=== PATIENT | female | born 1980 | race Caucasian/White ===

== ENCOUNTER 2018-11-08 15:19 | Emergency (ER) | payer MEDICAID ==
[~2018-11-08] VITALS: Ht 157.5 cm; Wt 54.0 kg
[2018-11-08] MEDS ORDERED: ONDANSETRON HCL 4 MG/2 ML VIAL IVP ONE (16:45)
[2018-11-08] MEDS ORDERED: BARIUM SULFATE 0.1% SUSPENSION 450 ML BOTTLE PO ONE (16:45)
[2018-11-08] MEDS ORDERED: SODIUM CHLORIDE 0.9% 1,000 ML IV ONE (16:45)
[2018-11-08] MEDS ORDERED: KETOROLAC TROMETHAMINE 30 MG/ML VIAL IVP ONE (16:45)
[2018-11-08 17:45] LABS: BASOPHILS % (AUTO) 0.5 % (0.0-2.0); EOSINOPHILS % (AUTO) 0.9 % (1.0-6.0); HEMATOCRIT 45.6 % (36-46); LYMPHOCYTES # (AUTO) 1.8 K/uL (1.0-4.8); LYMPHOCYTES % (AUTO) 30.8 % (22.0-44.0); MEAN CORPUSCULAR HEMOGLOBIN 28.7 pg (26.0-34.0); MEAN CORPUSCULAR HGB CONC 32.8 G/dL (31.0-37.0); MEAN CORPUSCULAR VOLUME 88 fL (80-100); MONOCYTES # (AUTO) 0.5 K/uL (0.1-1.0); MONOCYTES % (AUTO) 7.9 % (2.0-9.0); NEUTROPHILS # (AUTO) 3.4 K/uL (1.8-7.7); NEUTROPHILS % (AUTO) 59.9 % (40.0-70.0); PLATELET COUNT (AUTO) 138 K/uL (150-450); RED BLOOD CELL COUNT(AUTO) 5.22 MIL/uL (4.00-5.20); RED CELL DISTRIBUTION WIDTH 13.7 % (11.5-14.5)
[2018-11-08 17:47] LABS: APPEARANCE,URINE CLEAR (CLEAR); BILIRUBIN,URINE NEGATIVE (NEGATIVE); GLUCOSE, URINE (UA) NEGATIVE (NEGATIVE); KETONES,URINE NEGATIVE (NEGATIVE); LEUKOCYTE ESTERASE ,URINE NEGATIVE (NEGATIVE); NITRATE,URINE NEGATIVE (NEGATIVE); OCCULT BLOOD,URINE NEGATIVE (NEGATIVE); PROTEIN,URINE NEGATIVE (NEGATIVE); UROBILINOGEN,URINE 0.2 mg/dL (<=1.0)
[2018-11-08] MEDS ORDERED: IOVERSOL 320 MG/ML 100 ML VIAL ONE (17:54)
[2018-11-08] MEDS ORDERED: SODIUM CHLORIDE 0.9% 100 ML ONE (17:54)
[2018-11-08 18:06] LABS: ANION GAP 10 mmol/L (8-16); CALCIUM, TOTAL 9.3 mg/dL (8.8-10.5); CARBON DIOXIDE 27 mmol/L (22-29); CHLORIDE 103 mmol/L (98-107); GLOMERULAR FILTR. RATE CALC > 60 mL/min (>60); GLUCOSE,RANDOM 71 mg/dL (70-110); POTASSIUM 3.7 mmol/L (3.5-5.1); SODIUM SERUM 140 mmol/L (136-145); UREA NITROGEN, BLOOD 13 mg/dL (7-18)
[2018-11-08 18:12] LABS: ALANINE AMINOTRANSFERASE 23 U/L (12-78); ALBUMIN 4.1 g/dL (3.4-5.0); ALKALINE PHOSPHATASE 59 U/L (46-116); ASPARTATE AMINOTRANSFERASE 20 U/L (15-37); BILIRUBIN,TOTAL 0.7 mg/dL (0.1-1.0); LIPASE 73 U/L (73-393); TOTAL PROTEIN, SERUM 8.2 g/dL (6.4-8.2)
[2018-11-08] MEDS ORDERED: MORPHINE SULFATE 2 MG/ML SYRINGE IVP ONE (20:15)
[2018-11-08 22:55] VITALS: BP 101/69
== END 2018-11-08 23:21 | disposition home or self-care (01) ==
LOC: EMS 15:22
DX: K29.70 Gastritis, unspecified, without bleeding (principal)
CPT/HCPCS: 36415; 74177; 80053; 81003; 83690; 85025; 96361; 96374; 96375; 99284; J1885; J2405; J7030; J7050; Q9967; J2270

== ENCOUNTER 2020-12-02 21:19 | Emergency (ER) | payer MEDICAID ==
[~2020-12-02] VITALS: Ht 165.1 cm; Wt 62.0 kg
[2020-12-02 23:23] LABS: APPEARANCE,URINE CLEAR (CLEAR); BILIRUBIN,URINE NEGATIVE (NEGATIVE); GLUCOSE, URINE (UA) NEGATIVE (NEGATIVE); KETONES,URINE NEGATIVE (NEGATIVE); LEUKOCYTE ESTERASE ,URINE NEGATIVE (NEGATIVE); NITRATE,URINE NEGATIVE (NEGATIVE); OCCULT BLOOD,URINE NEGATIVE (NEGATIVE); PROTEIN,URINE NEGATIVE (NEGATIVE); UROBILINOGEN,URINE 0.2 mg/dL (<=1.0)
[2020-12-02 23:34] LABS: BASOPHILS % (AUTO) 0.1 % (0.0-2.0); EOSINOPHILS % (AUTO) 0.1 % (1.0-6.0); HEMATOCRIT 40.3 % (36-46); HEMOGLOBIN 13.6 g/dL (12.0-16.0); LYMPHOCYTES # (AUTO) 0.6 K/uL (1.0-4.8); MEAN CORPUSCULAR HEMOGLOBIN 28.9 pg (26.0-34.0); MEAN CORPUSCULAR HGB CONC 33.7 G/dL (31.0-37.0); MEAN CORPUSCULAR VOLUME 86 fL (80-100); MONOCYTES # (AUTO) 0.4 K/uL (0.1-1.0); MONOCYTES % (AUTO) 4.9 % (2.0-9.0); NEUTROPHILS # (AUTO) 6.8 K/uL (1.8-7.7); RED CELL DISTRIBUTION WIDTH 13.6 % (11.5-14.5)
[2020-12-02 23:36] LABS: NEUTROPHILS % (AUTO) 86.9 % (40.0-70.0)
[2020-12-02 23:45] LABS: ANION GAP 11 mmol/L (8-16); CALCIUM, TOTAL 8.2 mg/dL (8.8-10.5); CARBON DIOXIDE 24 mmol/L (22-29); CHLORIDE 103 mmol/L (98-107); CREATININE 0.57 mg/dL (0.60-1.30); GLOMERULAR FILTR. RATE CALC > 60 mL/min (>60); GLUCOSE,RANDOM 96 mg/dL (70-110); POTASSIUM 3.4 mmol/L (3.5-5.1); SODIUM SERUM 138 mmol/L (136-145); UREA NITROGEN, BLOOD 10 mg/dL (7-18)
[2020-12-02] MEDS ORDERED: 0.9% SODIUM CHLORIDE 10 ML SYRINGE IVP PRN (23:45)
[2020-12-02] MEDS ORDERED: SODIUM CHLORIDE 0.9% 1,850 ML IV ONE (23:45)
[2020-12-02 23:55] LABS: ALANINE AMINOTRANSFERASE 21 U/L (12-78); ALBUMIN 3.5 g/dL (3.4-5.0); ALKALINE PHOSPHATASE 65 U/L (46-116); ASPARTATE AMINOTRANSFERASE 16 U/L (15-37); BILIRUBIN,TOTAL 0.9 mg/dL (0.1-1.0); HCG,QUANTITATIVE < 1 mIU/mL (0-6); LIPASE 55 U/L (73-393); TOTAL PROTEIN, SERUM 7.1 g/dL (6.4-8.2)
[2020-12-03] MEDS ORDERED: ACETAMINOPHEN 500 MG TABLET PO ONE
[2020-12-03] MEDS ORDERED: ONDANSETRON HCL 4 MG/2 ML VIAL IVP ONE
[2020-12-03] MEDS ORDERED: KETOROLAC TROMETHAMINE 30 MG/ML VIAL IVP ONE
[2020-12-03 00:07] LABS: PROTHROMBIN TIME 10.3 SEC (9.4-11.6)
[2020-12-03 00:11] LABS: PLATELET COUNT (AUTO) 117 K/uL (150-450)
[2020-12-03 00:12] LABS: COVID AG,FIA SOURCE NASOPHARYNGEAL
[2020-12-03] MEDS ORDERED: SODIUM CHLORIDE 0.9% 100 ML ONE (00:13)
[2020-12-03] MEDS ORDERED: IOHEXOL 350 MG/ML 100 ML VIAL ONE (00:13)
[2020-12-03] MEDS ORDERED: POTASSIUM CHLORIDE 20 MEQ ER TABLET PO ONE (01:00)
[2020-12-03 02:18] VITALS: BP 92/65
== END 2020-12-03 03:25 | disposition home or self-care (01) ==
LOC: EMS 21:22
DX: K52.9 Noninfective gastroenteritis and colitis, unspecified (principal); Z20.822 Contact with and (suspected) exposure to COVID-19
CPT/HCPCS: 36415; 71045; 74177; 80053; 81003; 83605; 83690; 84702; 85025; 85610; 87426; 93005; 96361; 96374; 96375; 99285; A9575; J1885; J2405; J7030; J7050

== ENCOUNTER 2024-10-07 06:21 | Emergency (ER) | payer SELFPAY ==
[~2024-10-07] VITALS: Ht 167.6 cm; Wt 63.6 kg
[2024-10-07 07:11] LABS: BASOPHILS % (AUTO) 0.2 % (0.0-2.0); EOSINOPHILS % (AUTO) 0.4 % (1.0-6.0); HEMATOCRIT 40.8 % (36-46); HEMOGLOBIN 13.9 g/dL (12.0-16.0); LYMPHOCYTES # (AUTO) 0.3 K/uL (1.0-4.8); LYMPHOCYTES % (AUTO) 3.4 % (22.0-44.0); MEAN CORPUSCULAR HEMOGLOBIN 29.6 pg (26.0-34.0); MEAN CORPUSCULAR HGB CONC 34.2 G/dL (31.0-37.0); MEAN CORPUSCULAR VOLUME 86 fL (80-100); MONOCYTES # (AUTO) 0.3 K/uL (0.1-1.0); NEUTROPHILS # (AUTO) 8.2 K/uL (1.8-7.7); PLATELET COUNT (AUTO) 137 K/uL (150-450); RED BLOOD CELL COUNT(AUTO) 4.71 MIL/uL (4.00-5.20); RED CELL DISTRIBUTION WIDTH 13.7 % (11.5-14.5); WHITE BLOOD COUNT (AUTO) 8.9 K/uL (4.5-11.0)
[2024-10-07 07:21] LABS: ANION GAP 4 mmol/L (8-16); CALCIUM, TOTAL 7.5 mg/dL (8.8-10.5); CARBON DIOXIDE 28 mmol/L (22-29); CHLORIDE 106 mmol/L (98-107); CREATININE 0.65 mg/dL (0.60-1.30); GLOMERULAR FILTR. RATE CALC > 60 mL/min (>60); GLUCOSE,RANDOM 119 mg/dL (70-110); POTASSIUM 4.1 mmol/L (3.5-5.1); SODIUM SERUM 138 mmol/L (136-145); UREA NITROGEN, BLOOD 16 mg/dL (7-18)
[2024-10-07 07:26] VITALS: TEMP 98.1
[2024-10-07 07:36] LABS: RBC MORPHOLOGY COMMENT NORMAL RBC MORPH
[2024-10-07] MEDS: CIPROFLOXACIN HCL 250 MG TABLET PO ONE (07:41)
[2024-10-07] MEDS: ONDANSETRON HCL 4 MG/2 ML VIAL IVP ONE (07:41)
[2024-10-07] MEDS: DIPHENOXYLATE/ATROP 2.5-0.025 MG TABLET PO ONE (07:41)
[2024-10-07] MEDS: SODIUM CHLORIDE 0.9% 500 ML IV ONE (07:42)
[2024-10-07] MEDS: DICYCLOMINE HCL 20 MG TABLET PO ONE (07:59)
[2024-10-07] MEDS: METOCLOPRAMIDE HCL 5 MG/ML 2 ML VIAL IVP ONE (08:48)
[2024-10-07] MEDS: DiphenhydrAMINE HCL 50 MG/ML VIAL IVP ONE (08:48)
[2024-10-07 09:40] VITALS: BP 110/66; PULSE 67; RESP 14; O2SAT 100
[2024-10-07] MEDS ORDERED: ONDA-104 PO (10:06)
[2024-10-07] MEDS ORDERED: DICY-1 PO (10:06)
== END 2024-10-07 10:49 | disposition home or self-care (01) ==
LOC: EMS 06:21
DX: K52.9 Noninfective gastroenteritis and colitis, unspecified (principal); R11.2 Nausea with vomiting, unspecified; Z87.440 Personal history of urinary (tract) infections
CPT/HCPCS: 99284; 96374; 96375; 96361; 80048; 85025; 36415; J1200; J2765; J2405; J7040